=== PATIENT | male | born 1960 | race Asian ===

== ENCOUNTER 2025-05-03 21:20 | Emergency (ER) | payer MEDICARE ==
[~2025-05-03] VITALS: Ht 170.2 cm; Wt 85.0 kg
[2025-05-03 21:47] VITALS: BP 172/73; PULSE 82; RESP 16; TEMP 98.4; O2SAT 100
[2025-05-03] MEDS ORDERED: AMLO-258 PO (21:50)
[2025-05-03] MEDS ORDERED: LISI-894 PO (21:50)
== END 2025-05-03 23:41 | disposition left against medical advice (07) ==
LOC: EMS 21:23
DX: M54.50 Low back pain, unspecified (principal); Z53.21 Procedure and treatment not carried out due to patient leaving prior to being seen by health care provider
CPT/HCPCS: 99281; Z7502